=== PATIENT | female | born 1985 | race African-American/Black ===

== ENCOUNTER 2020-06-19 22:08 | Emergency (ER) | payer MEDICAID ==
[~2020-06-19] VITALS: Ht 165.1 cm; Wt 102.7 kg
[2020-06-19 22:37] VITALS: BP 149/94
[2020-06-19] MEDS ORDERED: ONDANSETRON 4MG ODT PO ONE (23:00)
[2020-06-19] MEDS ORDERED: FAMOTIDINE 20MG TABLET PO ONE (23:00)
[2020-06-19] MEDS ORDERED: LORAZEPAM 0.5MG TABLET PO ONE (23:45)
== END 2020-06-20 01:44 | disposition home or self-care (01) ==
LOC: ER 22:08
DX: K13.79 Other lesions of oral mucosa (principal); F41.9 Anxiety disorder, unspecified; R03.0 Elevated blood-pressure reading, without diagnosis of hypertension; F12.90 Cannabis use, unspecified, uncomplicated
CPT/HCPCS: 99284; Q0162